=== PATIENT | female | born 1950 | race Caucasian/White ===

== ENCOUNTER → 2020-10-04 09:10 | Outpatient (CLI) | payer MEDICARE, SELFPAY ==
--- NOTE | 2020-10-04 09:25 | MM_ITS ---
PROCEDURE: MM DIG SCREENING MAMM BI W/CAD Digital Breast Tomosynthesis Included CLINICAL INDICATION: SCREENING There is a history of breast cancer in the patient's mother. There has been a previous biopsy left breast for benign disease. COMPARISON: MG MM MAMMO DIGITAL MICHAEL SCREEN BILAT from 10/10/2018 MG MM MAMMO DIGITAL MICHAEL SCREEN BILAT from 10/01/2019 TECHNIQUE: Standard CC and MLO images and 3D Tomosynthesis was obtained. R2 CAD reviewed. FINDINGS: Diffuse heterogenic fibroglandular densities are seen throughout both breast and the findings are fairly symmetrical and bilateral. There is a biopsy clip deep to the nipple left breast. There is there is no suspicious lesion and no suspicious microcalcifications. A nodular density adjacent to the biopsy clip possibly representing a small fibroadenoma which was biopsied or minimal post biopsy scarring. IMPRESSION: Diffusely dense parenchymal pattern with no suspicious lesions seen BI-RAD Category: 2 Benign Finding(s) FOLLOW-UP: 1YR 1 Year Follow-up (A letter has been sent to the patient regarding results of the study.) Dictated by: Dr. Jason Oliver MD 10/08/2020 08:47 Dr. Jason Oliver MD in [place] 10/08/2020 08:47
== END ==
PROVIDERS: Visit Provider Family Medicine
DX: Z12.31 Encounter for screening mammogram for malignant neoplasm of breast (principal)
CPT/HCPCS: 77063; 77067

== ENCOUNTER → 2020-10-11 17:21 | Outpatient (CLI) | payer MEDICARE, SELFPAY ==
[2020-10-11 17:49] LABS: Basophils % 0.6 % (0.1-2.0); Eosinophils % 1.2 % (0.1-12.0); Hematocrit 31.3 % (37.0-47.0); Hemoglobin 9.8 g/dL (12.2-16.2); Lymphocytes # 0.9 K/mm3 (0.7-4.5); Lymphocytes % 38.6 % (10-50); Mean Corpuscular HGB Conc 31.4 g/dL (31.8-35.4); Mean Corpuscular Hemoglobin 24.7 pg (27.0-31.2); Mean Corpuscular Volume 78.6 fl (81-99); Mean Platelet Volume 9.8 fl (7.4-10.4); Monocytes # 0.2 K/mm3 (0.1-1.0); Neutrophils # 1.2 K/mm3 (1.8-7.8); Neutrophils % 52.6 % (37.0-80.0); Platelet Count 145 K/mm3 (142-424); Red Blood Count 3.99 M/mm3 (4.20-5.40); Red Cell Distribution Width 14.6 % (11.5-17.5); White Blood Count 2.3 K/mm3 (4.8-10.8)
[2020-10-11 18:24] LABS: Chloride 111 mmol/L (98-107); Sodium 142 mmol/L (136-145)
[2020-10-11 18:25] LABS: Potassium 4.3 mmoL/L (3.5-5.1)
[2020-10-11 18:27] LABS: Alanine Aminotransferase 20 U/L (12-78); Albumin Level 4.1 g/dl (3.5-5.0); Albumin/Globulin Ratio 1.2 (1.1-1.8); Alkaline Phosphatase 128 U/L (38-126); Anion Gap 11.3 mEq/L (5-15); Aspartate Amino Transferase 42 U/L (14-36); Bilirubin,Total 0.7 mg/dl (0.2-1.3); Blood Urea Nitrogen 13 mg/dl (7-17); Calcium 10.7 mg/dl (8.4-10.2); Carbon Dioxide 24 mmol/L (22.0-30.0); Chol/HDL Ratio 3.1 (1-3.5); Cholesterol 120 mg/dl (140-200); Estimated Glomerular Filt Rate 99 ml/min (>60); GFR (African American) 120 ML/MIN (>60); Globulin 3.3 g/dL (1.3-3.2); Glucose 152 mg/dl (74-100); HDL Cholesterol 39 mg/dl (40-60); Iron 56 ug/dL (37-170); Total Protein,Serum 7.4 g/dl (6.3-8.2); Triglycerides 116 mg/dl (30-150); VLDL Cholesterol 23 mg/dL (0-40)
[2020-10-11 18:38] LABS: Total Iron Binding Capacity 489 ug/dL (265-497)
[2020-10-11 18:39] LABS: Direct LDL Cholesterol 54.45 mg/dL (100-129)
[2020-10-11 18:44] LABS: Free T4 (Free Thyroxine) 1.63 ng/dl (0.78-2.19)
[2020-10-11 18:59] LABS: Thyroid Stimulating Hormone 0.86 uIU/mL (0.465-4.68)
[2020-10-11 19:03] LABS: Ferritin 7.87 ng/ml (11.1-264)
[2020-10-11 19:33] LABS: Hemoglobin A1C 6.5 % (4.0-6.0)
[2020-10-11 20:28] LABS: Microalbumin < 6.000 mg/L (0-16.7)
[2020-10-13 17:22] LABS: Peripheral Smear Review Scanned Result
== END ==
PROVIDERS: Visit Provider Physician Assistant
DX: E11.9 Type 2 diabetes mellitus without complications (principal); I10 Essential (primary) hypertension; E78.5 Hyperlipidemia, unspecified; Z79.84 Long term (current) use of oral hypoglycemic drugs
CPT/HCPCS: 80053; 80061; 82043; 82728; 83036; 83540; 83550; 84439; 84443; 85025

== ENCOUNTER 2020-12-03 13:41 | Outpatient (CLI) | payer MEDICARE, SELFPAY ==
[2020-12-03 14:10] VITALS: BP 121/57; PULSE 52; RESP 17; TEMP 36.7; O2SAT 99
[2020-12-03 14:55] VITALS: BP 132/68; PULSE 61; RESP 17; O2SAT 98
== END 2020-12-03 14:57 | disposition home or self-care (01) ==
LOC: INF 13:41
PROVIDERS: Visit Provider Internal Medicine Medical Oncology
DX: D50.9 Iron deficiency anemia, unspecified (principal)
CPT/HCPCS: 96365; J1439

== ENCOUNTER 2020-12-09 13:43 | Outpatient (CLI) | payer MEDICARE, SELFPAY ==
[2020-12-09 14:00] VITALS: BP 154/72; PULSE 66; RESP 18; O2SAT 97
[2020-12-09 14:40] VITALS: BP 150/76; PULSE 73; RESP 18
== END 2020-12-09 14:40 | disposition home or self-care (01) ==
LOC: INF 13:43
PROVIDERS: Visit Provider Internal Medicine Medical Oncology
DX: D50.9 Iron deficiency anemia, unspecified (principal)
CPT/HCPCS: 96365; J1439

== ENCOUNTER 2021-03-01 15:27 | Emergency (ER) | payer MEDICARE, SELFPAY ==
[2021-03-01 15:30] VITALS: BP 143/84; PULSE 70; RESP 21; TEMP 36.6; O2SAT 98; BMI 22.0
--- NOTE | 2021-03-01 16:15 | XR_ITS ---
PROCEDURE INFORMATION: Exam: XR Lumbosacral Spine Exam date and time: 03/01/2021 4:15 PM Age: 70 years old Clinical indication: Low back pain; Patient HX: Pain for 2-3 weeks, no known injury TECHNIQUE: Imaging protocol: XR of the lumbosacral spine. Views: 2 or 3 views. COMPARISON: No relevant prior studies available. FINDINGS: Bones/joints: There is no evidence of acute fracture. The lumbar spine demonstrates mild degenerative changes at multiple levels. The facet joints demonstrate mild degenerative hypertrophy and sclerosis. Soft tissues: Unremarkable. Gastrointestinal tract: A large amount of stool is noted throughout the colon. Vasculature: The vasculature demonstrates diffuse mild atherosclerotic calcification. IMPRESSION: 1. No evidence of acute fracture. 2. The lumbar spine demonstrates mild degenerative changes at multiple levels. 3. A large amount of stool is noted throughout the colon.
--- NOTE | 2021-03-01 16:26 | HMH.EDUTC ---
[facility] [place]ression: Low back pain Qualifiers: Chronicity: unspecified Back pain laterality: right Sciatica presence: with sciatica Sciatica laterality: sciatica of right side Qualified Code(s): M54.41 - Lumbago with sciatica, right side Disposition: Home, Self-Care Condition on Discharge: Good Instructions: DI for Sciatica, DI for Back Pain With Sciatica, Methocarbamol Additional Instructions: *Ibuprofen alma 6 hours with meal as needed for pain/inflammation if your doctor has said that you can take it *Not additional anti-inflammatory like motrin, aleve, advil with the above amount of ibuprofen. You can still take Tylenol every 4 hours as needed if you need something else for pain *Ice 20 minutes every 2 hours for the first 48 hours after the initial injury followed by moist heat every 20 minutes 3-4 times a day to affected area *Muscle relaxer as prescribed as needed for muscle spasms but remember, it WILL cause drowsiness You cannot take it and drive, operate machinery or care for small children. *Keep this area active, no movement leads to more stiffness, However take it easy and avoid heavy lifting pushing or pulling *Follow up with you family doctor if no improvement for further treatment Straight to ER if any life threatening symptoms Prescriptions: methocarbamoL [Methocarbamol 500mg Tablet] 500 mg PO BID PRN 5 Days #10 tab PRN Reason: Muscle Spasm Transmission Status: Received by [id number] polyethylene glycoL 3350 [Miralax 17gm Packet] 17 gm PO DAILY PRN #30 packet PRN Reason: Constipation Transmission Status: Received by [id number] Referrals: Jocelin Hernández PA [Primary Care Provider] - As needed Time of Disposition: 17:26 Medical Decision Making - Jesus Inquiry Pt receiving controlled substance: No Jesus was queried for this patient: No Vital Signs: 03/01/21 15:30 03/01/21 17:38 Temperature 97.8 F 97.8 F Temperature Source Oral Pulse Rate 70 Pulse Rate [Left Brachial] 70 Respiratory Rate 21 21 Blood Pressure 143/84 H Blood Pressure [Left Arm] 143/84 H Blood Pressure Mean [Left Arm] 103 Blood Pressure Source [Left Arm] Automatic Cuff Blood Pressure Position [Left Arm] Sitting 02 Sat by Pulse Oximetry 98 Oxygen Delivery Method Room Air Orders (Tests/Meds): ED MEDICATIONS Discontinued Medications Generic Name Dose Route Start Last Admin Trade Name Luis M PRN Reason Stop Dose Admin Methylprednisolone Sodium Succinate 62.5 mg 03/01/21 17:22 03/01/21 17:34 Methylprednisolone Sod Succ 125mg Vial IM 03/01/21 17:23 62.5 mg ONCE ONE Administration - Radiology Data #1 Image(s): L-Spine Image Reviewed: Yes I have reviewed radiologist's interpretation IMPRESSION: 1. No evidence of acute fracture. 2. The lumbar spine demonstrates mild degenerative changes at multiple levels. 3. A large amount of stool is noted throughout the colon. Medical Decision Narrative: Upon examination patient was saying pain in right ribs however when asked to show where it hurts was pointing to right flank/lower back area and reports pain radiates down buttock into groin and down leg Discussed with patient about doing a Lspine xray and patient agreed [facility] [place] - General Stated complaint: possible nerve pain R leg Time Seen by Provider: 03/01/21 16:00 Mode of Arrival: Ambulatory Source of Information: Patient Limitations: No Limitations Description of Symptoms (Recalled from Triage Doc. by RN): PATIENT C/O PAIN TO RIGHT LEG THAT RADIATES FROM GROIN TO ANKLE AND RIGHT RIB PAIN X 2 WEEKS HEENT Symptoms (Recalled from RN notes): No Resp Symptoms (Recalled from RN notes): No Skin Symptoms (Recalled from RN notes): No MS Symptoms (Recalled from RN notes): Yes Functional Status (Recalled from RN notes): WNL - History of Present Illness Provider Complaint: Patient states that she has been having pain in her right rib area that radi
[2021-03-01 17:38] VITALS: BP 143/84; PULSE 70; RESP 21; TEMP 36.6; O2SAT 98
== END 2021-03-01 17:50 | disposition home or self-care (01) ==
PROVIDERS: Emergency Provider Nurse Practitioner; PCP Physician Assistant
DX: M54.41 Lumbago with sciatica, right side (principal); E78.5 Hyperlipidemia, unspecified; I10 Essential (primary) hypertension; E11.9 Type 2 diabetes mellitus without complications; F33.1 Major depressive disorder, recurrent, moderate; Z79.84 Long term (current) use of oral hypoglycemic drugs; Z79.899 Other long term (current) drug therapy
CPT/HCPCS: G0463; 72100; 96372; 99202

== ENCOUNTER 2021-03-07 13:43 | Emergency (ER) | payer MEDICARE, SELFPAY ==
[2021-03-07 13:44] VITALS: BP 145/69; PULSE 70; RESP 18; TEMP 36.6; O2SAT 98; BMI 22.0
--- NOTE | 2021-03-07 14:08 | CT_ITS ---
PROCEDURE: CT LUMBAR SPINE WO CON CLINICAL HISTORY: lumbar pain Low back pain COMPARISON: No exams were available for comparison TECHNIQUE: Axial images obtained with sagittal and coronal reformats. All CT scans at the facility use one or more dose reduction, viz: automated exposure control, ma/kV adjustment per patient size (including targeted exams where dose is matched to indication, i.e. head), or iterative reconstruction technique. FINDINGS: There is normal alignment. No acute fracture or dislocation. There is multilevel lumbar spondylosis. There is partial lumbarization of S1. T11-T12: Facet hypertrophy/ossification on the right with mild right lateral recess narrowing. T12-L1: Unremarkable. L1-L2: Unremarkable. L2-L3: Minimal bulging disc. Mild facet hypertrophic change with mild bilateral lateral recess narrowing and mild bilateral foraminal narrowing. L3-L4: Mild facet hypertrophic change. L4-5: Bulging disc with moderate facet and ligamentum hypertrophy with some mild ligamentous ossification. There is mild bilateral lateral recess narrowing and foraminal narrowing left side greater than right. There is prominent facet hypertrophic change. L5-S1: Partial lumbarization of S1. Prominent facet and ligamentum hypertrophy with bulging disc with resultant canal stenosis. There is 3 mm anterolisthesis of L5. Gas is present within the facet joints bilaterally at this level. Prominent facet sclerosis with a few subchondral cyst. There is moderate right and moderate to severe left foraminal narrowing. Gas is present in the SI joints on both sides with subchondral cyst noted on the left. Mild osteosclerosis of the SI joint superiorly. No SI fusion. There is a small nonobstructing stone in the lower pole of the left kidney at 3 mm and another stone in the lower pole of the left kidney at 3 mm. IMPRESSION: 1. Multilevel lumbar spondylosis as described above. Please see above for detailed description at each level. There is degenerative disc disease with bulging disc along with facet and ligamentum hypertrophy with canal stenosis, lateral recess narrowing, and foraminal narrowing along with facet hypertrophic change and sclerosis.. There is a transitional segment at the lumbosacral junction and is labeled as S1. This should be taken into consideration if any intervention is considered. 2. Canal stenosis is present at L5-S1 3. Left nephrolithiasis Dictated by: Anderson Beltre MD 03/07/2021 14:59 Anderson Beltre MD in [place] 03/07/2021 14:59
[2021-03-07 14:22] LABS: Alanine Aminotransferase 31 U/L (12-78); Albumin Level 4.3 g/dl (3.5-5.0); Albumin/Globulin Ratio 1.4 (1.1-1.8); Alkaline Phosphatase 122 U/L (38-126); Amylase 54 U/L (30-110); Anion Gap 11.2 mEq/L (5-15); Aspartate Amino Transferase 39 U/L (14-36); Bilirubin,Total 0.9 mg/dl (0.2-1.3); Blood Urea Nitrogen 14 mg/dl (7-17); Calcium 10.3 mg/dl (8.4-10.2); Carbon Dioxide 25 mmol/L (22.0-30.0); Chloride 108 mmol/L (98-107); Creatinine Clearance Estimated 56 mL/min (50-200); Estimated Glomerular Filt Rate 99 ml/min (>60); GFR (African American) 120 ML/MIN (>60); Glucose 150 mg/dl (74-100); Lipase 110 U/L (23-300); Potassium 4.2 mmoL/L (3.5-5.1); Sodium 140 mmol/L (136-145); Total Protein,Serum 7.3 g/dl (6.3-8.2)
--- NOTE | 2021-03-07 14:37 | HMH.EDGENADL ---
ED Disposition Clinical Impression: Sciatica, right side Disposition: Home, Self-Care Condition on Discharge: Good Instructions: DI for Sciatica Prescriptions: methocarbamoL [Methocarbamol 500mg Tablet] 1,000 mg PO TID 10 Days #60 tab Transmission Status: Pending to [id number] Referrals: Jocelin Hernández PA [Primary Care Provider] - - Critical Care Critical Care Time: No Attestation: On 03/07/21, the high probability of a clinically significant, sudden or life threatening deterioration of the following system(s) required my full and direct attention, intervention and personal management. The time I documented below is in addition to time spent performing reported procedures but includes the following listed in this critical care notation. Medical Decision Making - Medical Records Medical records reviewed: Yes: I reviewed the patient's medical records. - Jesus Inquiry Pt receiving controlled substance: No Vital Signs: 03/07/21 13:44 03/07/21 15:09 Temperature 98 F Temperature Source Oral Pulse Rate 60 Pulse Rate [Radial] 70 Respiratory Rate 18 Blood Pressure 166/84 H Blood Pressure [Right Arm] 145/69 H Blood Pressure Mean 120 Blood Pressure Mean [Right Arm] 94 Blood Pressure Position [Right Arm] Sitting 02 Sat by Pulse Oximetry 98 97 Oxygen Delivery Method Room Air - Lab Data Lab Results 03/07/21 14:10: WBC 3.2 L, RBC 4.45, Hgb 12.6, Hct 38.0, MCV 85.3, MCH 28.2, MCHC 33.1, RDW 16.5, Plt Count 115 L, MPV 8.9, Neut % (Auto) 59.9, Lymph % (Auto) 29.6, [place] % (Auto) 7.0, Eos % (Auto) 2.7, Baso % (Auto) 0.9, Neut # (Auto) 1.9, Lymph # (Auto) 1.0, [place] # (Auto) 0.2, Eos # (Auto) 0.1, Baso # (Auto) 0.0 03/07/21 14:10: Sodium 140, Potassium 4.2, Chloride 108 H, Carbon Dioxide 25, Anion Gap 11.2, BUN 14, Creatinine 0.60, Estimated Creat Clear 56, Estimated GFR 99, Est GFR ( Amer) 120, Glucose 150 H, Calcium 10.3 H, Total Bilirubin 0.9, AST 39 H, ALT 31, Alkaline Phosphatase 122, Total Protein 7.3, Albumin 4.3, Globulin 3.0, Albumin/Globulin Ratio 1.4, Amylase 54, Lipase 110 03/07/21 14:58: Urine Color Dk yellow, Urine Appearance Clear, Urine pH 7.0, Ur Specific [place] 1.020, Urine Protein Negative, Urine Glucose (UA) Negative, Urine Ketones Negative, Urine Blood Negative, Urine Nitrate Negative, Urine Bilirubin Negative, Urine Urobilinogen 4.0, Ur Leukocyte Esterase Negative Result diagrams: 03/07/21 14:10 03/07/21 14:10 Orders (Tests/Meds): ED MEDICATIONS Discontinued Medications Generic Name Dose Route Start Last Admin Trade Name Luis M PRN Reason Stop Dose Admin Diazepam 5 mg 03/07/21 14:08 03/07/21 14:17 Diazepam 5mg Tablet PO 03/07/21 14:09 5 mg ONCE ONE Administration Ketorolac Tromethamine 30 mg 03/07/21 14:08 03/07/21 14:17 Ketorolac 30mg/Ml Vial IV 03/07/21 14:09 30 mg ONCE ONE Administration ORDERS Category Date Time Status Urinalysis and Microscopic Stat Lab 03/07/21 14:58 Results - CT Data CT Scan: Abdomen, Pelvis Time Received: 15:[address] Reviewed: Yes: I have reviewed the patient's CT results, I have viewed the radiologist's interpretation Findings Narrative: IMPRESSION: 1. Multilevel lumbar spondylosis as described above. Please see above for detailed description at each level. There is degenerative disc disease with bulging disc along with facet and ligamentum hypertrophy with canal stenosis, lateral recess narrowing, and foraminal narrowing along with facet hypertrophic change and sclerosis.. There is a transitional segment at the lumbosacral junction and is labeled as S1. This should be taken into consideration if any intervention is considered. 2. Canal stenosis is present at L5-S1 3. Left nephrolithiasis - Reevaluation(s) Time: 15:30 Reevaluation #1: On reevaluation, the patient is feeling much better. Repeat exam does show improvement of the pain. There is no neurolog
[2021-03-07 14:42] LABS: Basophils % 0.9 % (0.1-2.0); Eosinophils # 0.1 K/mm3 (0.0-0.4); Eosinophils % 2.7 % (0.1-12.0); Hemoglobin 12.6 g/dL (12.2-16.2); Lymphocytes % 29.6 % (10-50); Mean Corpuscular HGB Conc 33.1 g/dL (31.8-35.4); Mean Corpuscular Hemoglobin 28.2 pg (27.0-31.2); Mean Corpuscular Volume 85.3 fl (81-99); Mean Platelet Volume 8.9 fl (7.4-10.4); Monocytes # 0.2 K/mm3 (0.1-1.0); Neutrophils # 1.9 K/mm3 (1.8-7.8); Neutrophils % 59.9 % (37.0-80.0); Platelet Count 115 K/mm3 (142-424); Red Blood Count 4.45 M/mm3 (4.20-5.40); Red Cell Distribution Width 16.5 % (11.5-17.5); White Blood Count 3.2 K/mm3 (4.8-10.8)
[2021-03-07 15:09] VITALS: BP 166/84; PULSE 60; O2SAT 97
[2021-03-07 15:11] LABS: Microscopic, Urine URINE MICROSCOPIC (MICROSCOPIC)
[2021-03-07 15:16] LABS: Appearance,Urine CLEAR (Clear); Bilirubin,Urine Negative (Negative); Blood, Urine Negative (Negative); Color,Urine DK YELLOW (Yellow); Glucose,Urine (UA) Negative (Negative); Ketones,Urine Negative (Negative); Leukocyte Esterase,Urine Negative (Negative); Nitrate,Urine Negative (Negative); Protein,Urine Negative (Negative)
[2021-03-07 15:40] VITALS: BP 153/87; PULSE 87; RESP 18; TEMP 36.6; O2SAT 97
== END 2021-03-07 15:41 | disposition home or self-care (01) ==
PROVIDERS: Emergency Provider Emergency Medicine; PCP Physician Assistant
DX: M54.41 Lumbago with sciatica, right side (principal); G43.709 Chronic migraine without aura, not intractable, without status migrainosus; F33.1 Major depressive disorder, recurrent, moderate; E78.5 Hyperlipidemia, unspecified; I10 Essential (primary) hypertension; E11.65 Type 2 diabetes mellitus with hyperglycemia; Z79.899 Other long term (current) drug therapy
CPT/HCPCS: 72131; 80053; 81001; 82150; 83690; 85025; 96374; 99283

== ENCOUNTER 2021-06-14 13:15 | Emergency (ER) | payer MEDICARE, SELFPAY ==
--- NOTE | 2021-06-14 14:20 | HMH.EDUTC ---
[facility] [place]ression: Chronic headache Qualifiers: Headache type: unspecified Intractability: not intractable Qualified Code(s): R51.9 - Headache, unspecified HTN (hypertension) Qualifiers: Hypertension type: primary hypertension Qualified Code(s): I10 - Essential (primary) hypertension Disposition: Home, Self-Care Condition on Discharge: Good Additional Instructions: Medications as directed. Maintain all of your scheduled diagnostic tests. Return the emergency department for worsening headache, visual change, confusion or slurred speech. Follow-up with your PCP regarding your blood pressure and your glucose readings. Referrals: Cammie Petersen APRN [Primary Care Provider] - 3 days Medical Decision Making - Medical Records Medical records reviewed: No: I reviewed the patient's medical records. - Jesus Inquiry Pt receiving controlled substance: No Vital Signs: 06/14/21 14:39 06/14/21 14:59 06/14/21 17:20 Temperature 98.3 F 98.3 F 98.2 F Temperature Source Temporal Artery Scan Oral Pulse Rate 59 L Pulse Rate [Right Brachial] 60 61 Respiratory Rate 18 18 20 Blood Pressure 192/85 H Blood Pressure [Right Arm] 172/79 H 162/80 H Blood Pressure Mean [Right Arm] 110 107 Blood Pressure Source [Right Arm] Automatic Cuff Automatic Cuff Blood Pressure Position [Right Arm] Sitting Sitting 02 Sat by Pulse Oximetry 99 98 Oxygen Delivery Method Room Air Room Air Room Air - Lab Data Lab Results 06/14/21 14:22: POC Glucose 132 H 06/14/21 15:31: WBC 2.7 L, RBC 4.31, Hgb 12.9, Hct 38.4, MCV 89.1, MCH 30.0, MCHC 33.6, RDW 14.2, Plt Count 110 L, MPV 9.3, Neut % (Auto) 57.6, Lymph % (Auto) 34.9, [place] % (Auto) 5.1, Eos % (Auto) 1.5, Baso % (Auto) 1.0, Neut # (Auto) 1.5 L, Lymph # (Auto) 0.9, [place] # (Auto) 0.1, Eos # (Auto) 0.0, Baso # (Auto) 0.0 06/14/21 15:31: Sodium 140, Potassium 4.1, Chloride 107, Carbon Dioxide 25, Anion Gap 12.1, BUN 11, Creatinine 0.40 L, Estimated Creat Clear 58, Estimated GFR 159, Est GFR ( Amer) 192, Glucose 120 H, Calcium 10.4 H, Total Bilirubin 0.8, AST 42 H, ALT 23, Alkaline Phosphatase 141 H, Total Protein 7.4, Albumin 4.1, Globulin 3.3 H, Albumin/Globulin Ratio 1.2 Result diagrams: 06/14/21 15:31 06/14/21 15:31 Orders (Tests/Meds): ED MEDICATIONS Discontinued Medications Generic Name Dose Route Start Last Admin Trade Name Luisq PRN Reason Stop Dose Admin Lactated Ringer's 1,000 mls @ 999 mls/hr 06/14/21 15:15 06/14/21 15:45 Lactated Ringer's 1000 Ml Bag IV 06/14/21 16:15 999 mls/hr .Q1H1M MARKUS Administration Ketorolac Tromethamine 15 mg 06/14/21 16:13 06/14/21 16:53 Ketorolac 30mg/Ml Vial IV 06/14/21 16:14 15 mg ONCE ONE Administration [facility] [place] - General Stated complaint: elevated bp/glucose Time Seen by Provider: 06/14/21 14:20 - History of Present Illness Provider Complaint: She has been having high blood sugars and high blood pressure for the past 1 day. She states that last night her blood pressure was 200/100. Her blood sugars have been over 300 since yesterday. Normally her blood sugar is around 120. Its never been over 300 since she has known she is a diabetic. - Related Data Home Medications Medication Instructions Recorded Confirmed aspirin 81 mg tablet,delayed 81 mg PO DAILY 10/11/20 06/14/21 release citalopram 20 mg tablet 20 mg PO DAILY 10/11/20 06/14/21 fenofibrate 160 mg tablet 160 mg PO DAILY 10/11/20 06/14/21 lovastatin 10 mg tablet 10 mg PO HS tab 10/11/20 06/14/21 metformin 500 mg tablet 1,000 mg PO BID tab 10/11/20 06/14/21 metoprolol tartrate 50 mg tablet 50 mg PO BID 10/11/20 06/14/21 verapamil 80 mg tablet 80 mg PO BID 10/11/20 06/14/21 Allergies Allergy/AdvReac Type Severity Reaction Status Date / Time No Known Allergies Allergy Verified 06/14/21 14:39 [facility] History - Hepatitis A Screen Attestation statement:: This patient has been screened for Hepatitis A ri
[2021-06-14 14:30] LABS: POC Glucose,Bedside 132 (70-110)
[2021-06-14 14:39] VITALS: BP 172/79; PULSE 60; RESP 18; TEMP 36.8; O2SAT 99; BMI 22.8
[2021-06-14 14:59] VITALS: BP 162/80; PULSE 61; RESP 18; TEMP 36.8; O2SAT 98; BMI 22.7
[2021-06-14 15:56] LABS: Eosinophils % 1.5 % (0.1-12.0); Hematocrit 38.4 % (37.0-47.0); Hemoglobin 12.9 g/dL (12.2-16.2); Lymphocytes # 0.9 K/mm3 (0.7-4.5); Lymphocytes % 34.9 % (10-50); Mean Corpuscular HGB Conc 33.6 g/dL (31.8-35.4); Mean Corpuscular Volume 89.1 fl (81-99); Mean Platelet Volume 9.3 fl (7.4-10.4); Monocytes # 0.1 K/mm3 (0.1-1.0); Monocytes % 5.1 % (1.7-9.3); Neutrophils # 1.5 K/mm3 (1.8-7.8); Neutrophils % 57.6 % (37.0-80.0); Platelet Count 110 K/mm3 (142-424); Red Blood Count 4.31 M/mm3 (4.20-5.40); Red Cell Distribution Width 14.2 % (11.5-17.5); White Blood Count 2.7 K/mm3 (4.8-10.8)
[2021-06-14 15:58] LABS: Chloride 107 mmol/L (98-107); Potassium 4.1 mmoL/L (3.5-5.1); Sodium 140 mmol/L (136-145)
[2021-06-14 16:01] LABS: Alanine Aminotransferase 23 U/L (12-78); Albumin Level 4.1 g/dl (3.5-5.0); Albumin/Globulin Ratio 1.2 (1.1-1.8); Alkaline Phosphatase 141 U/L (38-126); Anion Gap 12.1 mEq/L (5-15); Aspartate Amino Transferase 42 U/L (14-36); Bilirubin,Total 0.8 mg/dl (0.2-1.3); Blood Urea Nitrogen 11 mg/dl (7-17); Calcium 10.4 mg/dl (8.4-10.2); Carbon Dioxide 25 mmol/L (22.0-30.0); Creatinine Clearance Estimated 58 mL/min (50-200); Estimated Glomerular Filt Rate 159 ml/min (>60); GFR (African American) 192 ML/MIN (>60); Globulin 3.3 g/dL (1.3-3.2); Glucose 120 mg/dl (74-100); Total Protein,Serum 7.4 g/dl (6.3-8.2)
--- NOTE | 2021-06-14 16:14 | HMH.EDGENADL ---
ED Disposition Clinical Impression: Chronic headache Qualifiers: Headache type: unspecified Intractability: not intractable Qualified Code(s): R51.9 - Headache, unspecified; G89.29 - Other chronic pain HTN (hypertension) Qualifiers: Hypertension type: primary hypertension Qualified Code(s): I10 - Essential (primary) hypertension Disposition: Home, Self-Care Condition on Discharge: Good Additional Instructions: Medications as directed. Maintain all of your scheduled diagnostic tests. Return the emergency department for worsening headache, visual change, confusion or slurred speech. Follow-up with your PCP regarding your blood pressure and your glucose readings. Referrals: Cammie Petersen APRN [Primary Care Provider] - 3 days Time of Disposition: 16:22 - Critical Care Critical Care Time: No Attestation: On 06/14/21, the high probability of a clinically significant, sudden or life threatening deterioration of the following system(s) required my full and direct attention, intervention and personal management. The time I documented below is in addition to time spent performing reported procedures but includes the following listed in this critical care notation. Medical Decision Making - Medical Records Medical records reviewed: Yes: I reviewed the patient's medical records. - Jesus Inquiry Pt receiving controlled substance: No Vital Signs: 06/14/21 14:39 06/14/21 14:59 Temperature 98.3 F 98.3 F Temperature Source Temporal Artery Scan Oral Pulse Rate [Right Brachial] 60 61 Respiratory Rate 18 18 Blood Pressure [Right Arm] 172/79 H 162/80 H Blood Pressure Mean [Right Arm] 110 107 Blood Pressure Source [Right Arm] Automatic Cuff Automatic Cuff Blood Pressure Position [Right Arm] Sitting Sitting 02 Sat by Pulse Oximetry 99 98 Oxygen Delivery Method Room Air Room Air - Lab Data Lab results reviewed: Yes: I reviewed the patient's lab results. Lab Results 06/14/21 14:22: POC Glucose 132 H 06/14/21 15:31: WBC 2.7 L, RBC 4.31, Hgb 12.9, Hct 38.4, MCV 89.1, MCH 30.0, MCHC 33.6, RDW 14.2, Plt Count 110 L, MPV 9.3, Neut % (Auto) 57.6, Lymph % (Auto) 34.9, [place] % (Auto) 5.1, Eos % (Auto) 1.5, Baso % (Auto) 1.0, Neut # (Auto) 1.5 L, Lymph # (Auto) 0.9, [place] # (Auto) 0.1, Eos # (Auto) 0.0, Baso # (Auto) 0.0 06/14/21 15:31: Sodium 140, Potassium 4.1, Chloride 107, Carbon Dioxide 25, Anion Gap 12.1, BUN 11, Creatinine 0.40 L, Estimated Creat Clear 58, Estimated GFR 159, Est GFR ( Amer) 192, Glucose 120 H, Calcium 10.4 H, Total Bilirubin 0.8, AST 42 H, ALT 23, Alkaline Phosphatase 141 H, Total Protein 7.4, Albumin 4.1, Globulin 3.3 H, Albumin/Globulin Ratio 1.2 Result diagrams: 06/14/21 15:31 06/14/21 15:31 Orders (Tests/Meds): ED MEDICATIONS Generic Name Dose Route Start Last Admin Trade Name Freq PRN Reason Stop Dose Admin Lactated Ringer's 1,000 mls @ 999 mls/hr 06/14/21 15:15 06/14/21 15:45 Lactated Ringer's 1000 Ml Bag IV 06/14/21 16:15 999 mls/hr .Q1H1M MARKUS Administration Ketorolac Tromethamine 15 mg 06/14/21 16:13 Ketorolac 30mg/Ml Vial IV 06/14/21 16:14 ONCE ONE Medical Decision Narrative: 70yo F evaluated for hypertensive urgency and headache. Patient's blood pressure is 180/80 on evaluation. Her headache is chronic and without acute feature. She is pending an MRI. Patient also complains of elevated blood glucose but her blood glucose is 130 on evaluation. Remainder of her laboratory studies are nonactionable. Patient receiving IV fluids and is appropriate stable for discharge home following. Encouraged to maintain all of her scheduled appointments for diagnostic studies. General Adult HPI - General Chief complaint: Recheck/Abnormal Lab/Rx Stated complaint: elevated bp/glucose Time Seen by Provider: 06/14/21 14:20 Mode of Arrival: Ambulatory Limitations: No Limitations Description of Symptoms (Recalled from ER Triage Doc. by RN): Sent from [facility]. Pt c/o
[2021-06-14 17:20] VITALS: BP 192/85; PULSE 59; RESP 20; TEMP 36.8; O2SAT 98
== END 2021-06-14 17:15 | disposition home or self-care (01) ==
LOC: UTC 13:19 → ER 14:58
PROVIDERS: Nurse Practitioner Family; Emergency Provider Family Medicine; PCP Nurse Practitioner
DX: R51.9 Headache, unspecified (principal); I10 Essential (primary) hypertension; E78.5 Hyperlipidemia, unspecified; E11.9 Type 2 diabetes mellitus without complications; F33.1 Major depressive disorder, recurrent, moderate; Z79.899 Other long term (current) drug therapy
CPT/HCPCS: 80053; 82962; 85025; 96365; 96375; 99282

== ENCOUNTER 2021-10-17 16:13 | Emergency (ER) | payer MEDICARE, OTHER, SELFPAY ==
[2021-10-17 16:14] VITALS: BP 181/78; PULSE 65; RESP 16; TEMP 36.7; O2SAT 100; BMI 25.8
[2021-10-17 17:00] VITALS: BP 139/78; PULSE 74; RESP 18; O2SAT 98
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
[2021-10-17 18:00] VITALS: BP 148/74; PULSE 83; RESP 16; O2SAT 96
--- NOTE | 2021-10-17 18:00 | PC.NURSE ---
PT AND FAMILY UPDATE ON PLAN OF CARE
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
[2021-10-17 18:54] VITALS: BP 155/74; PULSE 78; RESP 18; TEMP 36.6; O2SAT 98
== END 2021-10-17 18:55 | disposition home or self-care (01) ==
PROVIDERS: Emergency Provider Student in an Organized Health Care Education/Training Program; PCP Nurse Practitioner
DX: G43.909 Migraine, unspecified, not intractable, without status migrainosus (principal); M54.6 Pain in thoracic spine; I10 Essential (primary) hypertension; E78.5 Hyperlipidemia, unspecified; E11.9 Type 2 diabetes mellitus without complications; D64.9 Anemia, unspecified; M19.90 Unspecified osteoarthritis, unspecified site; F32.A Depression, unspecified; Z79.82 Long term (current) use of aspirin; Z79.84 Long term (current) use of oral hypoglycemic drugs; Z79.899 Other long term (current) drug therapy; V43.52XA Car driver injured in collision with other type car in traffic accident, initial encounter; Y93.9 Activity, unspecified; Y92.410 Unspecified street and highway as the place of occurrence of the external cause
CPT/HCPCS: 70450; 72125; 72128; 72131; 99285

== ENCOUNTER 2021-10-22 12:55 | Emergency (ER) | payer MEDICARE, SELFPAY ==
[2021-10-22 12:56] VITALS: BP 192/79; PULSE 67; RESP 16; TEMP 36.6; O2SAT 98; BMI 23.5
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
--- NOTE | 2021-10-22 13:10 | HMH.EDGENADL ---
ED Disposition Clinical Impression: Proximal humerus fracture Qualifiers: Encounter type: initial encounter Fracture type: closed Fracture morphology: unspecified fracture morphology Laterality: left Qualified Code(s): S42.202A - Unspecified fracture of upper end of left humerus, initial encounter for closed fracture Disposition: Home, Self-Care Condition on Discharge: Fair Instructions: DI for Shoulder Fracture Additional Instructions: Shoulder immobilizer. Percocet as needed for pain. See Dr. Meyer as soon as possible for further evaluation. Return to an emergency department immediately if you have uncontrollable pain, loss of feeling or inability to move your injured extremity. Additional instructions for CONTROLLED SUBSTANCES: You have been prescribed a medication that is a controlled substance. Controlled substances include pain medications known as opiates and sedative nerve medications known as benzodiazepines. Tramadol, fioricet, and gabapentin are also controlled substances. Some common opiates include: Codeine (such as Tylenol #3) Hydrocodone (Vicodin, Lortab, Lorcet, [place]) Oxycodone (Percocet, Percodan, Oxycodone, Oxy IR) Some common benzodiazepines include: Diazepam (Valium) Lorazepam (Ativan) Alprazolam (Xanax) Clonazepam (Klonopin) Oxazepam (Serax) All of these controlled substances are highly addictive and frequently abused. Misuse can and frequently does lead to addiction as well as overdose and . Medication should be stored in a locked cabinet or other secure storage unit. Do not store the medication in a motor vehicle. Short term supplies, 3 days or less, are prescribed because of the highly addictive nature of the medication. Any of the controlled substance medication NOT taken should be disposed of properly and NOT SAVED. The recommended method of disposing of unused medications is: Place the medicines in a sealable plastic bag. If the medicine is a solid, crush it or add water to dissolve it. Add something undesirable (cat litter, coffee grounds, etc.) Dispose of sealed bag in household trash Do not flush or pour unused medicines down a sink or drain. Controlled substances should not be shared, given away or sold. Because of the addictive nature and frequent abuse, these medications are sometimes stolen. These medications should be kept in a safe place where they cannot be stolen. Do not keep them in your car or purse. Lost or stolen prescriptions for controlled substances WILL NOT BE REFILLED in this emergency department, regardless of whether a police report was filed. Prescriptions: Oxycodone HCl/Acetaminophen [Percocet 5/325mg tablet] 1 tab PO Q6HP PRN #15 tablet PRN Reason: Moderate To Severe Pain Transmission Status: Sent to [id number] Referrals: Cammie Petersen APRN [Primary Care Provider] - Aayush Meyer JR, MD [Physician] - - Critical Care Critical Care Time: No Attestation: On , the high probability of a clinically significant, sudden or life threatening deterioration of the following system(s) required my full and direct attention, intervention and personal management. The time I documented below is in addition to time spent performing reported procedures but includes the following listed in this critical care notation. Medical Decision Making - Jesus Inquiry Pt receiving controlled substance: Yes Jesus was queried for this patient: Yes Risks and benefits of using a controlled substance: were discussed with pt by me Vital Signs: 10/22/21 12:56 Temperature 97.8 F Temperature Source Oral Pulse Rate [Radial] 67 Respiratory Rate 16 Blood Pressure [Right Arm] 192/79 H Blood Pressure Mean [Right Arm] 116 02 Sat by Pulse Oximetry 98 Oxygen Delivery Method Room Air Orders (Tests/Meds): ED MEDICATIONS Discontinued Medications Generic Name Dose Route Start Last Admin Trade Name Freq PRN Reason Stop Dose Ad
--- NOTE | 2021-10-22 13:19 | PC.NURSE ---
back from radiology and hooked back up to vital signs. warm blanket given to patient. nothing else needed at this time
--- NOTE | 2021-10-22 13:40 | PC.NURSE ---
SLING APPLIED LT ARM, CAP REFILL BRISK, RADIAL PULSE STRONG
[2021-10-22 13:51] VITALS: BP 185/71; PULSE 68; RESP 16; TEMP 36.6; O2SAT 98
== END 2021-10-22 13:53 | disposition home or self-care (01) ==
PROVIDERS: Emergency Provider Emergency Medicine; PCP Nurse Practitioner
DX: S42.202A Unspecified fracture of upper end of left humerus, initial encounter for closed fracture (principal); D64.9 Anemia, unspecified; I10 Essential (primary) hypertension; E78.5 Hyperlipidemia, unspecified; E11.9 Type 2 diabetes mellitus without complications; G43.909 Migraine, unspecified, not intractable, without status migrainosus; F32.A Depression, unspecified; M19.90 Unspecified osteoarthritis, unspecified site; Z79.82 Long term (current) use of aspirin; Z79.84 Long term (current) use of oral hypoglycemic drugs; Z79.899 Other long term (current) drug therapy
CPT/HCPCS: 73030; 73060; 96372; 99284; J2405

== ENCOUNTER → 2022-03-29 15:52 | Outpatient (CLI) | payer MEDICARE, SELFPAY ==
--- NOTE | 2022-03-29 16:04 | XR_ITS ---
FINAL REPORT CLINICAL HISTORY: BLOODY PHLEGM FINDINGS: Two views of the chest were obtained. The heart size and pulmonary vascularity are within normal limits. The mediastinum is normal. No acute pulmonary abnormality is identified. There is no pneumothorax. The bony thorax is intact. IMPRESSION: No active cardiopulmonary disease. Reviewed, Interpreted and Dictated by Ever Palacios III, MD Transcribed by Loyda Jaramillo Authenticated and [facility]
== END ==
PROVIDERS: PCP Nurse Practitioner; Visit Provider Nurse Practitioner
DX: R04.2 Hemoptysis (principal)
CPT/HCPCS: 71046

== ENCOUNTER 2023-11-03 17:30 | Emergency (ER) | payer MEDICARE, SELFPAY ==
[2023-11-03 17:32] VITALS: BP 148/68; PULSE 62; RESP 18; TEMP 36.6; O2SAT 99; BMI 22.7
[2023-11-03 18:10] VITALS: BP 157/76; PULSE 65; RESP 17; TEMP 36.5; O2SAT 98; BMI 22.5
--- NOTE | 2023-11-03 18:10 | PC.NURSE ---
Clarissa Leiva APRN s/w Dr. Bunch & agrees to transfer to ED
--- NOTE | 2023-11-03 18:23 | CT_ITS ---
PROCEDURE INFORMATION: Exam: CT Abdomen And Pelvis With Contrast Exam date and time: 11/03/2023 7:13 PM Age: 73 years old Clinical indication: Other: New vaginal bleeding; Additional info: New vaginal bleeding, weight loss TECHNIQUE: Imaging protocol: Computed tomography of the abdomen and pelvis with contrast. Radiation optimization: All CT scans at this facility use at least one of these dose optimization techniques: automated exposure control; mA and/or kV adjustment per patient size (includes targeted exams where dose is matched to clinical indication); or iterative reconstruction. Contrast material: ISOVUE; Contrast volume: 75 ml; Contrast route: IV; COMPARISON: CT LUMBAR SPINE WO CON 10/17/2021 5:20 PM FINDINGS: Lungs: Lung bases are clear. Liver: See Intraperitoneal space finding. Gallbladder and bile ducts: Small amount of fluid in the gallbladder fossa probably secondary to patient's ascites. Small gallstone dependent portion the gallbladder. Gallbladder wall is borderline thickened that may be secondary to the ascites. Bile ducts are not dilated. Pancreas: 1.3 cm oval-shaped pancreatic head cyst. Pancreas is otherwise unremarkable.. Main pancreatic duct is not significantly dilated. Spleen: Mild-moderate splenomegaly. Adrenal glands: Normal. No mass. Kidneys and ureters: Small nonobstructing left renal stones. Right kidney is unremarkable. Few small cortical cysts left kidney too small to adequately characterize. Stomach and bowel: There are multiple diverticuli throughout the distal portion of the large bowel without evidence of diverticulitis. Appendix: No evidence of appendicitis. Intraperitoneal space: Scattered small hypodensities too small to adequately characterize. Small amount of ascites adjacent to the liver margin and within the pelvis that may be secondary to patient's liver disease. Vasculature: Scattered atherosclerotic changes of the abdominal aorta and iliac vessels. No aortic aneurysm. Lymph nodes: Unremarkable. No enlarged lymph nodes. Urinary bladder: . Urinary bladder is somewhat collapsed limiting assessment. Reproductive: Endometrial cavity appears mildly expanded in slightly heterogeneous with small punctate calcification which you preview patient's age in history should be further assessed on pelvic ultrasound. Bones/joints: Unremarkable. No acute fracture. Soft tissues: Unremarkable. IMPRESSION: 1. Nonspecific findings involving the endometrial cavity for which follow-up nonemergent pelvic ultrasound recommended for further is a grade 2. Nonobstructing left renal stones 3. Colonic diverticulosis. No evidence of acute diverticulitis. 4. Cirrhosis with scattered small hypodensities too small to adequately characterize. Recommend either follow-up nonemergent MRI exam of the liver or repeat CT exam in 6 months for continued surveillance. 5. Splenomegaly and mild ascites that may be secondary to portal hypertension. 6. 1.3 cm pancreatic head cyst. Recommend a repeat CT exam in 1-2 years for continued surveillance. 7. Additional nonemergent findings as above. COMMENTS: Consistent with the [place]'s Incidental Findings Committee white paper (J Am David Radiol 2018): Any incidental renal lesion less than 1 cm or classified as too small to characterize, or any incidental cystic renal lesion characterized as simple-appearing, is likely benign. No follow-up imaging is recommended for these lesions per consensus recommendations based on imaging criteria.
--- NOTE | 2023-11-03 18:24 | HMH.EDGENADL ---
Discharge Plan Disposition Patient Disposition: Home, Self-Care Prescriptions Prescriptions: No Action metformin 500 mg tablet 1,000 mg PO BID metoprolol tartrate 50 mg tablet 50 mg PO BID citalopram 20 mg tablet 20 mg PO DAILY verapamil 80 mg tablet 80 mg PO BID lovastatin 10 mg tablet 10 mg PO HS fenofibrate 160 mg tablet 160 mg PO DAILY aspirin 81 mg tablet,delayed release (DR/EC) 81 mg PO DAILY alendronate 70 mg tablet See Rx Instructions .ROUTE .COMPLEX Patient Comments: TAKE 1 TABLET BY MOUTH ONCE A WEEK Rx Instructions: TAKE 1 TABLET BY MOUTH ONCE A WEEK meloxicam 7.5 mg tablet 7.5 mg PO DAILY Patient Comments: TAKE 1 TABLET BY MOUTH ONCE DAILY Referrals Follow up/Referrals: Laurie Solorio DO [Staff Physician] - See instructions Cammie Petersen APRN [Primary Care Provider] - See instructions Activity Restrictions/Add. Instructions Additional Instructions/Restrictions: At this time it was felt you are safe to be discharged home. If new or worsening symptoms please do not hesitate to return the emergency department. You have an ultrasound appointment Sunday at 8 AM. You have an appointment to see Dr. Solorio Sunday at 1 PM. Please follow-up with your family doctor for incidental nonemergent findings that were found on your CAT scan today including a pancreatic cyst and evidence of liver disease which is not an emergency but will need to be watched. Clinical Impressions Clinical Impression: Post-menopausal bleeding, Pancreas cyst, Cirrhosis, Splenomegaly Discharge ED Provider: Nathan Bunch General Adult HPI General Chief complaint: Vaginal Bleeding Stated complaint: vaginal bleeding Time Seen by Provider: 11/03/23 18:22 Mode of Arrival: Ambulatory Source of Information: Patient Limitations: No Limitations Description of Symptoms (Recalled from ER Triage Doc. by RN): Pt stated that she woke up with morning to pee and she noticed blood every where. She stated that she has filled up 5-6 pads today. She went to show us her pads and blood is just dripping out of her. She denies any trauma down there or being sexually active. History of Present Illness HPI narrative: Patient is a 73-year-old female with past medical history of vertigo, hypertension, hyperlipidemia, pelvic organ prolapse, ion-swjneyl-swcqgmhwy diabetes who presents emergency department for evaluation of vaginal bleeding. Onset was acute, occurring this morning when she woke up, 1 pad per hour. Patient underwent menopause when she was 59 years old and has had no vaginal bleeding since. Denies abdominal pain, dysuria. Last bowel movement today. No vomiting. No other acute complaints at this time. Due to persistent symptoms she presented to urgent treatment center where due to suspected significant bleeding referred her here for continued evaluation. Related Data Home Medications Medication Instructions Recorded Confirmed aspirin 81 mg tablet,delayed 81 mg PO DAILY CAD 10/11/20 11/03/23 release citalopram 20 mg tablet 20 mg PO DAILY . 10/11/20 11/03/23 fenofibrate 160 mg tablet 160 mg PO DAILY supplement 10/11/20 11/03/23 lovastatin 10 mg tablet 10 mg PO HS HTN 10/11/20 11/03/23 metformin 500 mg tablet 1,000 mg PO BID diabetes 10/11/20 11/03/23 metoprolol tartrate 50 mg tablet 50 mg PO BID HTN 10/11/20 11/03/23 verapamil 80 mg tablet 80 mg PO BID HTN 10/11/20 11/03/23 alendronate 70 mg tablet See Rx Instructions .Route .COMPLEX 11/03/23 11/03/23 meloxicam 7.5 mg tablet 7.5 mg PO DAILY 11/03/23 11/03/23 Allergies Allergy/AdvReac Type Severity Reaction Status Date / Time No Known Allergies Allergy Verified 11/03/23 18:11 [facility] Disclaimer: The information contained in this section may have been updated after the patient was seen, as this information can be updated by other users. Medical History (Updated 11/03/23 @ 20:08 by Nathan Bunch MD) Hyperlipidemia Depression Hypertension Diabetes mellitus Social History Smoking Status: Never smoker alcohol intake: never substance use type: denies use current occupational status: retired Travel in the last 8 weeks: None housing: house ROS Obtained: Yes Systems reviewed as appropriate & no additional complaints except as documented Physical Exam General General appearance: alert and in no apparent distress Head Head exam: atraumatic and normocephalic Eye Eye exam: Present PERRL and EOMI ENT ENT exam: Present mucous membranes moist Neck Neck exam: Present normal inspection Chest Chest inspection: Present normal inspection and symmetric chest wall rise Respiratory Respiratory exam: Present normal lung sounds bilaterally; Absent respiratory distress Cardiovascular Cardiovascular exam: Present regular rate and normal rhythm Abdominal Exam Abdominal exam: Present soft; Absent tenderness or guarding Bimanual exam: Present other ([employer] present. Vulva normal, introitus normal, small amount of blood in the posterior vaginal vault, normal-appearing cervix.) Extremities Exam Extremities exam: Present normal inspection Neurological Exam Neurological exam: Present alert Psychiatric Psychiatric exam: Present normal affect Skin Skin exam: Present warm and dry Medical Decision Making Jesus Inquiry Pt receiving controlled substance: No Vital Signs: 11/03/23 17:32 11/03/23 18:10 11/03/23 19:01 Temperature 97.8 F 97.7 F Temperature Source Oral Oral Pulse Rate 56 L Pulse Rate [Right Radial] 62 65 Respiratory Rate 18 17 Blood Pressure 130/75 Blood Pressure [Right Arm] 148/68 H 157/76 H Blood Pressure Mean 93 Blood Pressure Mean [Right Arm] 94 103 Blood Pressure Source [Right Arm] Automatic Cuff Automatic Cuff Blood Pressure Position [Right Arm] Sitting Supine 02 Sat by Pulse Oximetry 99 98 96 Oxygen Delivery Method Room Air Room Air Room Air 11/03/23 19:31 11/03/23 20:01 Temperature Temperature Source Pulse Rate 58 L 54 L Pulse Rate [Right Radial] Respiratory Rate Blood Pressure 152/70 H 129/60 Blood Pressure [Right Arm] Blood Pressure Mean 97 83 Blood Pressure Mean [Right Arm] Blood Pressure Source [Right Arm] Blood Pressure Position [Right Arm] 02 Sat by Pulse Oximetry 96 95 Oxygen Delivery Method Room Air Lab Data Lab Results 11/03/23 18:20: WBC 3.1 L, RBC 4.09 L, Hgb 12.2, Hct 36.6 L, MCV 89.7, MCH 29.8, MCHC 33.2, RDW 16.6, Plt Count 91 L, MPV 10.7 H, Neut % (Auto) 48.3, Lymph % (Auto) 39.4, [place] % (Auto) 9.0, Eos % (Auto) 1.8, Baso % (Auto) 1.6, Neut # (Auto) 1.5 L, Lymph # (Auto) 1.2, [place] # (Auto) 0.3, Eos # (Auto) 0.1, Baso # (Auto) 0.1, PT 12.4, INR 1.16 H, Sodium 141, Potassium 4.2, Chloride 113 H, Carbon Dioxide 26, Anion Gap 6.2, BUN 17, Creatinine 0.50 L, Estimated Creat Clear 55, Estimated GFR 122, Est GFR ( Amer) 147, Glucose 189 H, Calcium 10.4 H, Total Bilirubin 1.5 H, AST 61 H, ALT 32, Alkaline Phosphatase 76, Total Protein 7.1, Albumin 4.0, Globulin 3.1, Albumin/Globulin Ratio 1.3, Lipase 130 11/03/23 18:20 11/03/23 18:20 Orders (Tests/Meds): ED MEDICATIONS Discontinued Medications Generic Name Dose Route Start Last Admin Trade Name Freq PRN Reason Stop Dose Admin Iopamidol 75 ml 11/03/23 19:25 11/03/23 19:26 Iopamidol-370 (76%);100ml Bottle IV 11/03/23 19:26 75 ml ONCE ONE Administration Sodium Chloride 10 ml 11/03/23 19:25 11/03/23 19:26 Sodium Chloride 0.9% 10ml Syr (Rad Only) IV 11/03/23 19:26 10 ml ONCE ONE Administration ORDERS Category Date Time Status CT abdomen pelvis w con Stat Cat Scan 11/03/23 18:23 Completed CBC w/Auto Diff [Complete Blood Count Auto Diff] Stat Lab 11/03/23 18:20 Completed CMP [Comprehensive Metabolic Panel] Stat Lab 11/03/23 18:20 Completed Lipase Stat Lab 11/03/23 18:20 Completed PT INR [Prothrombin Time INR] Stat Lab 11/03/23 18:20 Completed Medical Decision Narrative: In summary patient is a 73-year-old female with past medical history described above who presents emergency department for evaluation of atraumatic nonpainful vaginal bleeding. Patient is hemodynamically stable upon arrival. Differential includes malignancy, fibroids, coagulopathy, among others. Workup will be conducted with hematologic labs, CT abdomen pelvis IV contrast. Initial workup reviewed by me, hematologic labs are nonactionable, no acute anemia although blood loss was acute would be expected to be normal hemoglobin. Patient has no tachycardia to suggest developing hemorrhagic shock. On my physical exam she does not have any significant hemorrhage has a normal introitus and cervix. Remainder of hematologic labs are nonactionable. CT imaging of the abdomen pelvis shows nonspecific endometrial cavity findings for which nonemergent pelvic ultrasound was recommended. Patient also has incidental diverticulosis without diverticulitis, cirrhosis with small scattered hypodensities too small to adequately characterize with follow-up nonemergent MRI or repeat CT in 6 months recommended, splenomegaly and mild ascites which may be secondary to portal hypertension, 1.3 cm pancreatic head cyst for which surveillance was recommended. Upon repeat evaluation patient had no ongoing hemorrhage and is appropriate for outpatient management at this time. The case was discussed with Dr. Solorio who recommends Provera 5 mg daily, Dr. Solorio facilitated ultrasound Sunday morning at 8 AM and will see the patient on Sunday at 1 PM. Patient will follow-up with PCP for nonemergent additional findings. Critical Care Critical Care Time Critical Care Time: No
[2023-11-03 18:37] LABS: Lipase 130 U/L (23-300)
--- NOTE | 2023-11-03 18:37 | PC.NURSE ---
ER MD and RN to do vaginal exam
[2023-11-03 18:40] LABS: INR 1.16 (0.9-1.1); Prothrombin Time 12.4 seconds (10.1-12.5)
[2023-11-03 18:43] LABS: Basophils # 0.1 K/mm3 (0-0.2); Basophils % 1.6 % (0.1-2.0); Eosinophils # 0.1 K/mm3 (0.0-0.4); Eosinophils % 1.8 % (0.1-12.0); Hematocrit 36.6 % (37.0-47.0); Hemoglobin 12.2 g/dL (12.2-16.2); Lymphocytes # 1.2 K/mm3 (0.7-4.5); Lymphocytes % 39.4 % (10-50); Mean Corpuscular HGB Conc 33.2 g/dL (31.8-35.4); Mean Corpuscular Hemoglobin 29.8 pg (27.0-31.2); Mean Corpuscular Volume 89.7 fl (81-99); Mean Platelet Volume 10.7 fl (7.4-10.4); Monocytes # 0.3 K/mm3 (0.1-1.0); Neutrophils # 1.5 K/mm3 (1.8-7.8); Neutrophils % 48.3 % (37.0-80.0); Platelet Count 91 K/mm3 (142-424); Red Blood Count 4.09 M/mm3 (4.20-5.40); Red Cell Distribution Width 16.6 % (11.5-17.5); White Blood Count 3.1 K/mm3 (4.8-10.8)
[2023-11-03 18:47] LABS: Chloride 113 mmol/L (98-107); Potassium 4.2 mmoL/L (3.5-5.1); Sodium 141 mmol/L (136-145)
[2023-11-03 18:50] LABS: Alanine Aminotransferase 32 U/L (12-78); Albumin/Globulin Ratio 1.3 (1.1-1.8); Alkaline Phosphatase 76 U/L (38-126); Anion Gap 6.2 mEq/L (5-15); Aspartate Amino Transferase 61 U/L (14-36); Bilirubin,Total 1.5 mg/dl (0.2-1.3); Blood Urea Nitrogen 17 mg/dl (7-17); Calcium 10.4 mg/dl (8.4-10.2); Carbon Dioxide 26 mmol/L (22.0-30.0); Creatinine Clearance Estimated 55 mL/min (50-200); Estimated Glomerular Filt Rate 122 ml/min (>60); GFR (African American) 147 ML/MIN (>60); Globulin 3.1 g/dL (1.3-3.2); Glucose 189 mg/dl (74-100); Total Protein,Serum 7.1 g/dl (6.3-8.2)
[2023-11-03 19:01] VITALS: BP 130/75; PULSE 56; O2SAT 96
[2023-11-03] MEDS: IOPAMIDOL-370 (76%);100ML BOTTLE 75 ML IV (19:26)
[2023-11-03] MEDS: SODIUM CHLORIDE 0.9% 10ML SYR (RAD ONLY) 10 ML IV (19:26)
[2023-11-03 19:31] VITALS: BP 152/70; PULSE 58; O2SAT 96
[2023-11-03 20:01] VITALS: BP 129/60; PULSE 54; O2SAT 95
[2023-11-03 21:04] VITALS: BP 142/73; PULSE 57; RESP 17; TEMP 36.7; O2SAT 98
== END 2023-11-03 21:08 | disposition home or self-care (01) ==
LOC: UTC 17:52 → ER 18:08
PROVIDERS: Emergency Provider Emergency Medicine; PCP Nurse Practitioner
DX: N95.0 Postmenopausal bleeding (principal); K74.60 Unspecified cirrhosis of liver; K86.2 Cyst of pancreas; R16.1 Splenomegaly, not elsewhere classified; I10 Essential (primary) hypertension; E78.5 Hyperlipidemia, unspecified; E11.9 Type 2 diabetes mellitus without complications
CPT/HCPCS: 74177; 80053; 83690; 85025; 85610; 99284; Q9967

== ENCOUNTER 2023-11-05 08:00 | Outpatient (CLI) | payer MEDICARE, SELFPAY ==
--- NOTE | 2023-11-05 08:09 | US_ITS ---
PROCEDURE: US TRANSVAGINAL CLINICAL INDICATION: post menopausal bleeding COMPARISON: CT CT ABDOMEN PELVIS W CON from 11/03/2023 FINDINGS: Transvaginal sonographic images of the pelvis were obtained. UTERUS: 7.9 cm x 5.5cmx 3.6 cm anteverted with a combined endometrial thickness of 10.6mm. The endometrium is thickened and has a cystic appearance. There is a small hyperechoic area measuring 4.2 mm that may represent a small polyp. LEFT OVARY: 2.0cmx1.1cmx1.4cm with a volume of 1.5ml. There are a couple of small hyperechoic areas in the left ovary. RIGHT OVARY: Not visualized. Left ovary is seen and appears normal. Doppler flow to left ovary is seen. There is a small amount of fluid in the cul-de-sac. There is moderate fluid around the uterus. IMPRESSION: 1. Anteverted, uterus bulky in size for a woman this age. 2. The endometrium is thickened and cystic. There may be a small 4 mm hyperechoic polyp. 3. The left ovary is seen and appears atrophic. The right ovary is not visualized. 4. There is moderate fluid around the uterus and a small amount of fluid in the cul-de-sac. 5. Suggest endometrial sampling. Concerning for endometrial hyperplasia or carcinoma. Dictated by: Joey Mckeon MD 11/05/2023 13:04 Joey Mckeon MD in [place] 11/05/2023 13:04
== END 2023-11-05 23:59 ==
LOC: RAD 08:04
PROVIDERS: PCP Nurse Practitioner; Visit Provider Obstetrics & Gynecology
DX: N95.0 Postmenopausal bleeding (principal)
CPT/HCPCS: 76830

== ENCOUNTER 2023-11-06 14:15 | Outpatient (CLI) | payer MEDICARE, SELFPAY ==
[2023-11-06 14:38] LABS: Basophils % 0.9 % (0.1-2.0); Eosinophils # 0.1 K/mm3 (0.0-0.4); Eosinophils % 1.9 % (0.1-12.0); Hematocrit 35.8 % (37.0-47.0); Hemoglobin 11.8 g/dL (12.2-16.2); Lymphocytes # 1.1 K/mm3 (0.7-4.5); Lymphocytes % 33.8 % (10-50); Mean Corpuscular HGB Conc 33.1 g/dL (31.8-35.4); Mean Corpuscular Hemoglobin 29.6 pg (27.0-31.2); Mean Corpuscular Volume 89.5 fl (81-99); Mean Platelet Volume 10.2 fl (7.4-10.4); Monocytes # 0.2 K/mm3 (0.1-1.0); Monocytes % 5.9 % (1.7-9.3); Neutrophils # 1.9 K/mm3 (1.8-7.8); Neutrophils % 57.5 % (37.0-80.0); Platelet Count 94 K/mm3 (142-424); Red Cell Distribution Width 16.3 % (11.5-17.5); White Blood Count 3.3 K/mm3 (4.8-10.8)
[2023-11-06 14:57] LABS: Alanine Aminotransferase 24 U/L (12-78); Albumin Level 3.9 g/dl (3.5-5.0); Albumin/Globulin Ratio 1.4 (1.1-1.8); Alkaline Phosphatase 96 U/L (38-126); Anion Gap 11.4 mEq/L (5-15); Aspartate Amino Transferase 37 U/L (14-36); Blood Urea Nitrogen 10 mg/dl (7-17); Calcium 10.4 mg/dl (8.4-10.2); Carbon Dioxide 21 mmol/L (22.0-30.0); Chloride 113 mmol/L (98-107); Estimated Glomerular Filt Rate 99 ml/min (>60); GFR (African American) 119 ML/MIN (>60); Globulin 2.8 g/dL (1.3-3.2); Glucose 124 mg/dl (74-100); Potassium 4.4 mmoL/L (3.5-5.1); Sodium 141 mmol/L (136-145); Total Protein,Serum 6.7 g/dl (6.3-8.2)
[2023-11-06 15:15] LABS: Hemoglobin A1C 6.9 % (4.0-6.0)
== END 2023-11-06 23:59 ==
PROVIDERS: PCP Nurse Practitioner; Visit Provider Obstetrics & Gynecology
DX: E11.9 Type 2 diabetes mellitus without complications (principal); N95.0 Postmenopausal bleeding; Z79.84 Long term (current) use of oral hypoglycemic drugs
CPT/HCPCS: 36415; 80053; 83036; 85025

== ENCOUNTER 2023-11-08 07:39 | Day surgery (SDC) | payer MEDICARE, SELFPAY ==
[2023-11-08] VITALS (7 sets, daily range): BP systolic 87–158; BP diastolic 49–78; PULSE 55–74; RESP 14–18; TEMP 36.5–36.7; O2SAT 94–100; BMI 22.5
[2023-11-08 08:26] LABS: Activated Partial Thrombo Time 27.1 seconds (22.8-30.6); Fibrinogen 128 mg/dL (229.9-363.5); Prothrombin Time 11.8 seconds (10.1-12.5)
[2023-11-08 08:30] LABS: POC Glucose,Bedside 165 (70-110)
[2023-11-08] MEDS: LACTATED RINGERS 1000ML 1,000 ML 25 ML IV (08:40)
--- NOTE | 2023-11-08 10:20 | P.OP_ITS ---
Date of procedure: 11/08/23 Pre-op Diagnosis:: 1. Postmenopausal bleeding 2. Thickened endometrial stripe Post-op Diagnosis:: 1. Postmenopausal bleeding 2. Thickened endometrial stripe 3. Endometrial polyp Procedure performed:: Hysteroscopy, dilation, and MyoSure polypectomy Surgeon:: Laurie Solorio DO EMERGENCY SERVICES DIRECTOR:: Other (Mirena saldaris) Anesthesia: GETA Estimated blood loss (mL): 10 Operative findings:: Findings: -EUA revealed an 8-week anteverted uterus. A grade 4 cystocele was noted with grade 3 uterine procidentia. -Hysteroscopy revealed several endometrial polyps/suspected submucosal fibroids. 3 were pedunculated and filled the uterine cavity. The fibroid was at the fundus near the left cornua/tubal ostia. Polyps and fibroid were able to be removed in their entirety. Operative note:: The patient was taken back to the OR where general anesthesia was obtained.? She was placed in the dorsal lithotomy position using yellow fin stirrups and sterilely prepped and draped in the usual fashion.? An in and out catheter was used to drain her bladder.? A timeout was performed.? A weighted speculum was used to visualize this cervix, a single-tooth tenaculum was applied to the anterior lip of the cervix. The cervix was only slightly dilated to allow entry to the ectocervix and hydrodisection was used to get the scope the rest of the way into the cavity. The hysterscope was inserted and a large polyp was noted as described above. Images were obtained of the cavity. The tubal ostia were obscured by the polyp and not easily visible.? Decision was made to proceed with the MyoSure for polypectomy. Device set up, primed and zeroed. The device was used to resect the outer edge of the polyp until the complete polyp was removed down to the base. At the conclusion of the procedure there was a fluid deficit of 45mLs. Total myosure cutting time was 3minutes 11seconds. Following complete removal of the polyps the MyoSure hysteroscope was removed.? The single-tooth tenaculum was removed and hemostasis was noted at the tenaculum sites.? All instruments were removed from the vagina.? All counts were correct, per nursing.? This concluded the procedure, the patient was awakened from anesthesia, and transferred to the PACU in stable condition. Condition: stable Disposition: PACU Specimens:: Endometrial polyps Complications:: None
--- NOTE | 2023-11-08 10:21 | EXP.ANES.I ---
[facility] Anesthesia Record Part I Anesthesia Record I Intake, IV Amount: 600 Hydration: Adequate Estimated blood loss (mL): 25 Urine output (mL): 200 Blood Products used (#): none Blood Pressure: 87/49 SaO2: 94 Pulse Rate: 55 Airway Patency: Patent Respiratory Rate: 14 Temperature: 97.7 F Patient is:: Drowsy, Oral/Nasal airway (9.0 oral airway) and Stable Stable to PACU at:: 10:20
--- NOTE | 2023-11-09 13:46 | P.PNANES_ITS ---
[facility] [place] Anesthesia Record Part II Anesthesia Record Part II Discharge Time: 10:35 Destination: Surgical Day Care (OP Surgery) PACU nurse assessment reviewed?: Yes Patient Condition:: Good Anesthesia Complications:: None Swallowing reflex intact?: Yes Airway Patency: Patent Cyanosis?: No Blood Pressure: 126/71 SaO2: 100 Respiratory Rate: 16 Pulse Rate: 60 Temperature: 98.1 F Mental Status: Alert & Oriented Pain level:: 0 Nausea and/or vomitting:: None Intake, IV Amount: 0 Hydration: Adequate
[2023-11-09 13:47] VITALS: BP 126/71; PULSE 60; RESP 16; TEMP 36.7; O2SAT 100
[2023-11-10 07:55] LABS: Peripheral Smear Review Scanned Result
== END 2023-11-08 10:59 | disposition home or self-care (01) ==
PROVIDERS: PCP Nurse Practitioner; Visit Provider Obstetrics & Gynecology
PROC: (CPT 58558; principal; 2023-11-08 09:30)
DX: N95.0 Postmenopausal bleeding (principal); N84.0 Polyp of corpus uteri; N81.3 Complete uterovaginal prolapse; E11.9 Type 2 diabetes mellitus without complications
CPT/HCPCS: 58558; 36415; 82962; 85384; 85610; 85730; 86850; J2405

== ENCOUNTER 2023-11-16 12:12 | Emergency (ER) | payer MEDICARE, SELFPAY ==
[2023-11-16 12:30] VITALS: BP 152/84; PULSE 72; RESP 20; TEMP 36.8; O2SAT 99; BMI 21.9
--- NOTE | 2023-11-16 13:00 | EXP.UTC ---
Discharge Plan Disposition Patient Disposition: Home, Self-Care Condition: Good Prescriptions Prescriptions: No Action metformin 500 mg tablet 1,000 mg PO BID metoprolol tartrate 50 mg tablet 50 mg PO BID citalopram 20 mg tablet 20 mg PO DAILY verapamil 80 mg tablet 80 mg PO DAILY lovastatin 10 mg tablet 10 mg PO HS fenofibrate 160 mg tablet 160 mg PO DAILY acetaminophen 500 mg tablet 500 mg PO Q6H PRN (Reason: fever) Qty: 30 3RF oxycodone 5 mg tablet 5 mg PO Q8H PRN (Reason: pain) Qty: 5 0RF alendronate 70 mg tablet See Rx Instructions .ROUTE .COMPLEX Patient Comments: TAKE 1 TABLET BY MOUTH ONCE A WEEK Rx Instructions: TAKE 1 TABLET BY MOUTH ONCE A WEEK meloxicam 7.5 mg tablet 7.5 mg PO DAILY Patient Comments: TAKE 1 TABLET BY MOUTH ONCE DAILY medroxyprogesterone [Provera] 5 mg tablet 5 mg PO DAILY Qty: 7 0RF Referrals Follow up/Referrals: Laurie Solorio DO [Primary Care Provider] - See instructions Activity Restrictions/Add. Instructions Additional Instructions/Restrictions: Follow up with your regular doctor. GO TO THE ER FOR ANY WORSENING SYMPTOMS, ESPECIALLY ANY WORSENING EYE PAIN AND/OR DECREASED VISION Clinical Impressions Clinical Impression: Subconjunctival hemorrhage of right eye Instructions Patient Instructions: DI for Subconjunctival Hemorrhage Discharge ED Provider: Miller Sandhu [facility] General Stated complaint: red right eye Time Seen by Provider: 11/16/23 13:00 History of Present Illness Provider Complaint: She states that for the past 4 days she has had redness of her right eye. She denies any injury or foreign body. She states that she does have some eye discomfort but she denies pain. She denies any change in her vision. Related Data Home Medications Medication Instructions Recorded Confirmed citalopram 20 mg tablet 20 mg PO DAILY . 10/11/20 11/08/23 fenofibrate 160 mg tablet 160 mg PO DAILY supplement 10/11/20 11/08/23 lovastatin 10 mg tablet 10 mg PO HS HTN 10/11/20 11/08/23 metformin 500 mg tablet 1,000 mg PO BID diabetes 10/11/20 11/08/23 metoprolol tartrate 50 mg tablet 50 mg PO BID HTN 10/11/20 11/08/23 verapamil 80 mg tablet 80 mg PO DAILY HTN 10/11/20 11/08/23 alendronate 70 mg tablet See Rx Instructions .Route .COMPLEX 11/03/23 11/08/23 meloxicam 7.5 mg tablet 7.5 mg PO DAILY 11/03/23 11/08/23 Previous Rx's Medication Instructions Recorded medroxyprogesterone 5 mg tablet 5 mg PO DAILY vaginal bleeding #7 11/03/23 (Provera) tabs acetaminophen 500 mg tablet 500 mg PO Q6H PRN fever #30 tabs 11/08/23 oxycodone 5 mg tablet 5 mg PO Q8H PRN pain #5 tabs 11/08/23 Allergies Allergy/AdvReac Type Severity Reaction Status Date / Time No Known Allergies Allergy Verified 11/08/23 08:18 [facility] Disclaimer: The information contained in this section may have been updated after the patient was seen, as this information can be updated by other users. Medical History (Updated 11/16/23 @ 13:12 by Miller Sandhu APRN) Bladder prolapse Migraine Anxiety History of anemia Vertigo Hyperlipidemia Depression Hypertension Diabetes mellitus Surgical History H/O tubal ligation History of tonsillectomy Family History Other Anemia Asthma Cancer Diabetes Hyperlipidemia Hypertension Social History (Updated 11/08/23 @ 08:29 by Marcela Mei RN) Smoking Status: Never smoker alcohol intake: never substance use type: denies use current occupational status: retired Travel in the last 8 weeks: None housing: house ROS Obtained: Yes All systems reviewed & no additional complaints except as documented Constitutional Constitutional: Denies chills and Denies fever(s) Eyes Eyes: Reports as per HPI, Denies blurry vision, Denies change in vision, Denies eye discharge and Reports irritation ENT Ears, Nose, Mouth, and Throat: Denies dizziness, Denies otalgia and Denies sore throat Cardiovascular Cardiovascular: Denies chest pain Respiratory Respiratory: Denies shortness of breath, Denies chest congestion, Denies cough, Denies stridor and Denies wheezing Gastrointestinal Gastrointestingal: Denies nausea or vomiting Musculoskeletal Musculoskeletal: Reports system reviewed and no additional complaints, except as documented and Denies arthralgias Integumentary/Breasts Skin/Breast: Denies rash Neurologic Neurologic: Denies dizziness and Denies paresthesias Allergic/Immunologic Allergic/Immunologic: Denies wheezing Physical Exam General General appearance: alert and in no apparent distress Head Head exam: atraumatic, normocephalic and normal inspection Eye Eye exam: Present PERRL and EOMI Expanded Eye Exam Eyelids: left: normal inspection and right: erythema Pupils: Left: size (2), Right: size (2) and Bilateral: regular, round and reactive Sclera/Conjunctival: left: normal inspection and right: hemorrhage ENT ENT exam: Present normal exam, normal oropharynx, mucous membranes moist, TM's normal bilaterally and normal external ear exam Neck Neck exam: Present normal inspection, full ROM and trachea midline; Absent meningismus or lymphadenopathy Chest Chest inspection: Present normal inspection and symmetric chest wall rise; Absent tenderness Respiratory Respiratory exam: Present normal lung sounds bilaterally; Absent respiratory distress Cardiovascular Cardiovascular exam: Present regular rate and normal rhythm; Absent JVD Abdominal Exam Abdominal exam: Present soft and normal bowel sounds; Absent distention, tenderness or guarding Extremities Exam Extremities exam: Present normal inspection, full ROM and normal capillary refill; Absent calf tenderness Back Exam Back exam: Present normal inspection; Absent tenderness Neurological Exam Neurological exam: Present alert and oriented X3 Psychiatric Psychiatric exam: Present normal affect and normal mood Skin Skin exam: Present warm, dry, intact and normal color Lymphatic Lymphatic Findings: no adenopathy Medical Decision Making Medical Records Medical records reviewed: No I reviewed the patient's medical records. Jesus Inquiry Pt receiving controlled substance: No
[2023-11-16 13:16] VITALS: BP 152/84; PULSE 72; RESP 20; TEMP 36.8; O2SAT 99
== END 2023-11-16 13:19 | disposition home or self-care (01) ==
PROVIDERS: Emergency Provider Nurse Practitioner Family; PCP Obstetrics & Gynecology
DX: H11.31 Conjunctival hemorrhage, right eye (principal); E11.9 Type 2 diabetes mellitus without complications; E78.5 Hyperlipidemia, unspecified; I10 Essential (primary) hypertension; Z79.84 Long term (current) use of oral hypoglycemic drugs
CPT/HCPCS: 99212; 99213; G0463

== ENCOUNTER 2023-12-27 11:51 | Outpatient (CLI) | payer MEDICARE, SELFPAY ==
[2023-12-27 12:27] LABS: Basophils % 0.8 % (0.1-2.0); Eosinophils % 1.8 % (0.1-12.0); Hematocrit 33.6 % (37.0-47.0); Hemoglobin 11.2 g/dL (12.2-16.2); Lymphocytes # 0.7 K/mm3 (0.7-4.5); Lymphocytes % 32.1 % (10-50); Mean Corpuscular HGB Conc 33.2 g/dL (31.8-35.4); Mean Corpuscular Hemoglobin 29.7 pg (27.0-31.2); Mean Corpuscular Volume 89.7 fl (81-99); Mean Platelet Volume 9.7 fl (7.4-10.4); Monocytes # 0.2 K/mm3 (0.1-1.0); Monocytes % 7.2 % (1.7-9.3); Neutrophils # 1.2 K/mm3 (1.8-7.8); Neutrophils % 58.2 % (37.0-80.0); Platelet Count 87 K/mm3 (142-424); Red Blood Count 3.75 M/mm3 (4.20-5.40); Red Cell Distribution Width 15.3 % (11.5-17.5); White Blood Count 2.1 K/mm3 (4.8-10.8)
[2023-12-27 14:43] LABS: Folate 8.94 ng/mL; Vitamin B12 > 1000 pg/mL (239-931)
[2023-12-27 16:38] LABS: Iron 101 ug/dL (37-170)
[2023-12-27 16:47] LABS: Total Iron Binding Capacity 474 ug/dL (265-497)
== END 2023-12-27 23:59 | disposition home or self-care (01) ==
LOC: LAB 11:52
PROVIDERS: PCP Nurse Practitioner; Visit Provider Internal Medicine Medical Oncology
DX: D61.818 Other pancytopenia (principal); D64.9 Anemia, unspecified; N95.0 Postmenopausal bleeding
CPT/HCPCS: 36415; 82607; 82728; 82746; 83540; 83550; 85025